=== PATIENT | male | born 1985 | race Two or more races ===

== ENCOUNTER 2020-09-08 17:43 | Emergency (ER) | payer SELFPAY ==
[~2020-09-08] VITALS: Ht 195.6 cm; Wt 95.7 kg
[2020-09-08 17:48] VITALS: BP 155/113
[2020-09-08] MEDS ORDERED: cloNIDine HCL 0.1 MG TAB PO ONE (18:00)
== END 2020-09-08 19:13 ==
LOC: ER 17:43
DX: R03.0 Elevated blood-pressure reading, without diagnosis of hypertension (principal); F15.10 Other stimulant abuse, uncomplicated